=== PATIENT | male | born 1970 | race Caucasian/White ===

== ENCOUNTER 2018-12-17 11:41 | Emergency (ER) | payer MEDICAID ==
[~2018-12-17] VITALS: Ht 185.4 cm; Wt 94.8 kg
[~2018-12-17 11:41] MED LIST: CLIN300C5 PO; FLOR250 PO; LISI10TA11 PO; METF500T2 PO
[2018-12-17 11:52] VITALS: BP 139/88
--- NOTE | 2018-12-17 11:53 | NUR ---
PATIENT AMBULATED TO BED 8.
[2018-12-17] MEDS ORDERED: NACL 0.9% 1,000 ML IV ONE ×2 (12:15→14:15)
--- NOTE | 2018-12-17 12:35 | NUR ---
48/M presents to ED with complaints of elevated blood sugar for the past 2 weeks. Pt also c/o headaches with blurry vision. Pt states his PCP sent him over for further evaluation. Pt c/o 7/10 headache to frontal head. Pt awake and alert appropriate to age, conversing appropriately. Pt placed into gown, belongings bag provided and set chair side. Pt placed on ekg monitor, pulse oximetry and blood pressure monitoring. site monitor shows sinus tachycardia.
[2018-12-17] MEDS ORDERED: INSU100S22 SC (12:40)
[2018-12-17] MEDS ORDERED: GABA300C PO (12:40)
--- NOTE | 2018-12-17 12:45 | NUR ---
DR. NASH AT BEDSIDE EVALUATING PATIENT.
[2018-12-17 12:46] LABS: BASOPHILS % (AUTO) 0.3 % (0.0-2.0); EOSINOPHILS # (AUTO) 0.1 K/uL (0-0.4); EOSINOPHILS % (AUTO) 1.4 % (0.0-4.0); HEMATOCRIT 51.9 % (36-52); HEMOGLOBIN 17.4 g/dL (12.0-18.0); LYMPHOCYTES # (AUTO) 1.4 K/uL (2.0-11.5); LYMPHOCYTES % (AUTO) 16.8 % (20.5-51.1); MEAN CORPUSCULAR HEMOGLOBIN 30 pg (27-31); MEAN CORPUSCULAR HGB CONC 34 g/dL (33-37); MEAN CORPUSCULAR VOLUME 90.1 fL (80-94); MONOCYTES # (AUTO) 0.7 K/uL (0.8-1.0); MONOCYTES % (AUTO) 8.6 % (1.7-9.3); NEUTROPHILS % (AUTO) 72.9 % (42.2-75.2); PLATELET COUNT (AUTO) 235 K/uL (140-450); RED BLOOD CELL COUNT(AUTO) 5.77 MIL/uL (4.20-6.10); RED CELL DISTRIBUTION WIDTH 12.9 % (11.6-13.7); WHITE BLOOD COUNT (AUTO) 8.2 K/uL (4.8-10.8)
[2018-12-17 12:58] LABS: ANION GAP 14.7 (8-16); CARBON DIOXIDE 26.3 mmol/L (21-32); CREATININE 0.7 mg/dL (0.7-1.3)
[2018-12-17 13:04] LABS: ALBUMIN 3.5 g/dL (3.4-5.0); TOTAL BILIRUBIN 0.5 mg/dL (0.0-1.0)
--- NOTE | 2018-12-17 13:06 | NUR ---
PT REPOSITIONED FOR COMFORT, LIGHT DIMMED. WILL CONTINUE TO MONITOR.
[2018-12-17] MEDS ORDERED: FAMOTIDINE 20 MG/2 ML VIAL IVP ONE (13:15)
[2018-12-17] MEDS ORDERED: KETOROLAC 15 MG/ML VIAL IVP ONE (13:15)
[2018-12-17 13:31] LABS: APPEARANCE,URINE CLEAR (CLEAR); BILIRUBIN,URINE NEGATIVE (NEGATIVE); BLOOD, URINE NEGATIVE (NEGATIVE); COLOR,URINE YELLOW (YELLOW); LEUKOCYTE ESTERASE ,URINE NEGATIVE (NEGATIVE); NITRITE, URINE NEGATIVE (NEGATIVE); PH,URINE 5.5 (5.0-9.0); UGLUCOSE 3+ (NEGATIVE)
--- NOTE | 2018-12-17 13:33 | NUR ---
BLOOD SUGAR 300. ER MD NASH MADE AWARE.
[2018-12-17 13:45] LABS: RBC,URINE NONE SEEN /HPF (0-5); WBC,URINE NONE SEEN /HPF (0-5)
[2018-12-17] MEDS ORDERED: INSULIN REGULAR, HUMAN 100 UNIT/ML VIAL SUBQ ONE (14:15)
--- NOTE | 2018-12-17 15:23 | NUR ---
Patient discharged with v/s stable. Written and verbal after care instructions given and explained. Patient alert, oriented and verbalized understanding of instructions. Ambulatory with steady gait. All questions addressed prior to discharge. ID band removed. Patient advised to follow up with PMD. Rx of ACETAMINOPHEN AND PEPCID given. Patient educated on indication of medication including possible reaction and side effects. Opportunity to ask questions provided and answered.
[2018-12-17 15:24] VITALS: BP 128/92
== END 2018-12-17 15:23 | disposition home or self-care (01) ==
LOC: MED 11:41
DX: S30.0XXA Contusion of lower back and pelvis, initial encounter (principal); E11.65 Type 2 diabetes mellitus with hyperglycemia; K29.70 Gastritis, unspecified, without bleeding; K21.9 Gastro-esophageal reflux disease without esophagitis; I10 Essential (primary) hypertension; Z79.4 Long term (current) use of insulin; Z79.899 Other long term (current) drug therapy; W22.8XXA Striking against or struck by other objects, initial encounter; Y93.89 Activity, other specified; Y92.89 Other specified places as the place of occurrence of the external cause; Y99.8 Other external cause status
CPT/HCPCS: 36415; 80053; 81001; 82948; 83690; 84484; 85025; 93005; 96361; 96372; 96374; 96375; 99284; J1815; J1885; J3490; J7030

== ENCOUNTER 2019-02-12 21:14 | Emergency (ER) | payer MEDICAID ==
[~2019-02-12] VITALS: Ht 185.4 cm; Wt 96.6 kg
[~2019-02-12 21:14] MED LIST changes: -CLIN300C5 PO; -FLOR250 PO; +GABA300C PO; +INSU100S22 SC; -METF500T2 PO
[2019-02-12 21:28] VITALS: BP 144/94
--- NOTE | 2019-02-12 21:37 | NUR ---
PT AMBULATED TO LOBBY TO A/W BED.
--- NOTE | 2019-02-12 22:50 | NUR ---
PT ambulated to bed 02.
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
--- NOTE | 2019-02-12 23:34 | NUR ---
PATIENT ALERT AND AWAKE, BREATHING EVEN AND UNLABORED
--- NOTE | 2019-02-12 23:45 | NUR ---
WILL ADMIN ORDERED MED WHEN PT BACK FROM XRAY
[2019-02-12] MEDS: LORazepam 1 MG TAB PO ONE (23:56)
--- NOTE | 2019-02-13 00:15 | NUR ---
RECEIVED REPORT FROM SUDARSHAN MCCAIN, BACK FROM BREAK
--- NOTE | 2019-02-13 00:27 | NUR ---
PATIENT RESTING WITH EYES CLOSED, BREATHING EVEN AND UNLABORED
[2019-02-13 00:41] VITALS: BP 135/98
--- NOTE | 2019-02-13 00:41 | NUR ---
Patient discharged with v/s stable. Written and verbal after care instructions ABOUT ANXIETY AND PANIC ATTACKS, BACK PAIN given and explained. Patient alert, oriented and verbalized understanding of instructions. Ambulatory with steady gait. All questions addressed prior to discharge. ID band removed. Patient advised to follow up with PMD. Rx of ATIVAN given. Patient educated on indication of medication including possible reaction and side effects. Opportunity to ask questions provided and answered.
== END 2019-02-13 00:41 | disposition home or self-care (01) ==
LOC: MED 21:14
DX: F41.0 Panic disorder [episodic paroxysmal anxiety] (principal); M54.9 Dorsalgia, unspecified; E11.9 Type 2 diabetes mellitus without complications; K21.9 Gastro-esophageal reflux disease without esophagitis; I10 Essential (primary) hypertension; Z79.899 Other long term (current) drug therapy; Z79.4 Long term (current) use of insulin; Z98.890 Other specified postprocedural states
CPT/HCPCS: 72100; 99284

== ENCOUNTER 2019-09-13 11:35 | Emergency (ER) | payer MEDICAID ==
[~2019-09-13] VITALS: Ht 177.8 cm; Wt 95.3 kg
[2019-09-13 12:06] LABS: BASOPHILS % (AUTO) 0.5 % (0.0-2.0); EOSINOPHILS # (AUTO) 0.2 K/uL (0-0.4); EOSINOPHILS % (AUTO) 2.7 % (0.0-4.0); HEMATOCRIT 50.3 % (36-52); HEMOGLOBIN 16.9 g/dL (12.0-18.0); LYMPHOCYTES # (AUTO) 1.7 K/uL (2.0-11.5); LYMPHOCYTES % (AUTO) 26.8 % (20.5-51.1); MEAN CORPUSCULAR HEMOGLOBIN 30 pg (27-31); MEAN CORPUSCULAR HGB CONC 34 g/dL (33-37); MEAN CORPUSCULAR VOLUME 90.4 fL (80-94); MONOCYTES # (AUTO) 0.6 K/uL (0.8-1.0); MONOCYTES % (AUTO) 9.7 % (1.7-9.3); NEUTROPHILS # (AUTO) 3.9 K/uL (1.8-7.7); NEUTROPHILS % (AUTO) 60.3 % (42.2-75.2); PLATELET COUNT (AUTO) 222 K/uL (140-450); RED BLOOD CELL COUNT(AUTO) 5.57 MIL/uL (4.20-6.10); RED CELL DISTRIBUTION WIDTH 13.1 % (11.6-13.7); WHITE BLOOD COUNT (AUTO) 6.4 K/uL (4.8-10.8)
[2019-09-13 12:09] VITALS: BP 125/90
[2019-09-13] MEDS: NALOXONE 0.4 MG/ML VIAL IVP ONE (12:09)
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
[2019-09-13 12:24] LABS: ALBUMIN 3.8 g/dL (3.4-5.0); ANION GAP 16.6 (8-16); CARBON DIOXIDE 26.1 mmol/L (21-32); CREATININE 1.1 mg/dL (0.6-1.3); POTASSIUM 3.7 mmol/L (3.5-5.1); TOTAL BILIRUBIN 0.7 mg/dL (0.0-1.0)
--- NOTE | 2019-09-13 12:28 | NUR ---
CRITICAL LABS : BLOOD GLUCOSE: 416 CREAT 1.1
[2019-09-13] MEDS: NACL 0.9% 1,000 ML IV ONE ×2 (12:33→14:33)
[2019-09-13] MEDS: INSULIN REGULAR, HUMAN 100 UNIT/ML VIAL SUBQ ONE (12:34)
--- NOTE | 2019-09-13 13:54 | NUR ---
PT IS AWAKE AND ALERT, FULLY RESPONIVE VERBALLY. DENIES ANY PAIN OR DISCOMFORT AT THIS TIME. RESP EVEN AND UNLABORED. VSS.
[2019-09-13 16:13] VITALS: BP 132/89
--- NOTE | 2019-09-13 16:14 | NUR ---
Patient discharged with v/s stable. Written and verbal after care instructions given and explained. Patient alert, oriented and verbalized understanding of instructions. Ambulatory with steady gait. All questions addressed prior to discharge. ID band removed. Patient advised to follow up with PMD. Rx of NARCAN given. Patient educated on indication of medication including possible reaction and side effects. Opportunity to ask questions provided and answered.
== END 2019-09-13 16:14 | disposition home or self-care (01) ==
LOC: MED 11:35
DX: T40.601A Poisoning by unspecified narcotics, accidental (unintentional), initial encounter (principal); R41.82 Altered mental status, unspecified; E11.65 Type 2 diabetes mellitus with hyperglycemia; F17.200 Nicotine dependence, unspecified, uncomplicated; F11.90 Opioid use, unspecified, uncomplicated; I10 Essential (primary) hypertension; K21.9 Gastro-esophageal reflux disease without esophagitis; Z79.899 Other long term (current) drug therapy
CPT/HCPCS: 36415; 80053; 85025; 96372; 96374; 99284; J1815; J2310; J7030

== ENCOUNTER 2020-01-21 19:11 | Emergency (ER) | payer MEDICAID ==
--- NOTE | 2020-01-21 21:00 | NUR ---
PATIENT CALLED TO BE TRIAGE NO RESPONSE PATIENT LEFT WITHOUT BEING SEEN BY DR. GARCIA. NO FURTHER CARE PROVIDED FOR PATIENT.
--- NOTE | 2020-01-21 21:05 | NUR ---
CALLED FOR THE SECOND TIME NO RESPONSE.
--- NOTE | 2020-01-21 21:10 | NUR ---
CALLED FOR THE THIRD TIME NO RESPONSE
== END 2020-01-21 21:00 | disposition left against medical advice (07) ==
LOC: MED 19:11
DX: Z53.21 Procedure and treatment not carried out due to patient leaving prior to being seen by health care provider (principal)

== ENCOUNTER 2020-03-05 01:20 | Emergency (ER) | payer MEDICAID ==
[~2020-03-05] VITALS: Ht 185.4 cm; Wt 95.7 kg
[2020-03-05 01:23] VITALS: BP 131/100
--- NOTE | 2020-03-05 01:23 | NUR ---
TO BED # 05 AMBULATORY
--- NOTE | 2020-03-05 01:34 | NUR ---
Dr. Barker examining patient.
[2020-03-05] MEDS ORDERED: NACL 0.9% 1,000 ML IV ONE (01:40)
[2020-03-05] MEDS ORDERED: LIDOCAINE/EPI 1% 1:100000 20 ML VIAL INJ ONE (01:40)
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
--- NOTE | 2020-03-05 01:45 | NUR ---
LAB AT BEDSIDE COLLECTING BLOOD SPECIMEN
[2020-03-05 01:56] LABS: BASOPHILS # (AUTO) 0.1 K/uL (0.00-0.22); BASOPHILS % (AUTO) 0.9 % (0.0-2.0); EOSINOPHILS # (AUTO) 0.2 K/uL (0-0.4); EOSINOPHILS % (AUTO) 2.3 % (0.0-4.0); HEMATOCRIT 48.2 % (36-52); HEMOGLOBIN 16.3 g/dL (12.0-18.0); LYMPHOCYTES # (AUTO) 2.3 K/uL (2.0-11.5); LYMPHOCYTES % (AUTO) 31.4 % (20.5-51.1); MEAN CORPUSCULAR HEMOGLOBIN 30 pg (27-31); MEAN CORPUSCULAR HGB CONC 34 g/dL (33-37); MONOCYTES # (AUTO) 0.6 K/uL (0.8-1.0); MONOCYTES % (AUTO) 8.7 % (1.7-9.3); NEUTROPHILS # (AUTO) 4.1 K/uL (1.8-7.7); NEUTROPHILS % (AUTO) 56.7 % (42.2-75.2); PLATELET COUNT (AUTO) 245 K/uL (140-450); RED BLOOD CELL COUNT(AUTO) 5.42 MIL/uL (4.20-6.10); RED CELL DISTRIBUTION WIDTH 12.6 % (11.6-13.7); WHITE BLOOD COUNT (AUTO) 7.2 K/uL (4.8-10.8)
[2020-03-05 02:08] LABS: CREATININE 0.9 mg/dL (0.6-1.3)
--- NOTE | 2020-03-05 02:10 | NUR ---
DR LAURENT AT BEDSIDE PERFORMING PROCEDURE
--- NOTE | 2020-03-05 02:18 | NUR ---
PROVIDED PT WITH A CUP OF WATER AND A URINAL TO PROVIDE URINE SPECIMEN PER ERMD ORDERS
--- NOTE | 2020-03-05 02:25 | NUR ---
PT PROVIDED URINE SPECIMEN----WALKED OVER TO LAB
[2020-03-05 02:33] LABS: APPEARANCE,URINE CLEAR (CLEAR); BILIRUBIN,URINE NEGATIVE (NEGATIVE); BLOOD, URINE NEGATIVE (NEGATIVE); COLOR,URINE YELLOW (YELLOW); LEUKOCYTE ESTERASE ,URINE NEGATIVE (NEGATIVE); NITRITE, URINE NEGATIVE (NEGATIVE); UGLUCOSE 3+ (NEGATIVE)
[2020-03-05] MEDS ORDERED: INSULIN REGULAR, HUMAN 100 UNIT/ML VIAL SUBQ ONE (02:35)
--- NOTE | 2020-03-05 02:45 | NUR ---
PT IS SITTING IN LOW FOWLERS POSITION. 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 BED IS LOCKED AND IN LOWEST POSITION. SIDE RAILSX1. NO ACUTE DISTRESS NOTED. ALL ORDERS CARRIED OUT AND NO NEW ORDERS AT THIS TIME.
--- NOTE | 2020-03-05 03:09 | NUR ---
JANY LAURENT AT BEDSIDE FOR RE-EVALUATION
--- NOTE | 2020-03-05 03:18 | NUR ---
PER JANY LAURENT REQUEST TO RECHECK BLOOD SUGAR
--- NOTE | 2020-03-05 03:21 | NUR ---
ACCUCHECK OF 253-ERMD MEHRAN MADE AWARE AND STATED IT IS OKAY TO DISCHARGE PATIENT
[2020-03-05 03:39] VITALS: BP 134/86
--- NOTE | 2020-03-05 03:39 | NUR ---
Patient discharged with v/s stable. Written and verbal after care instructions given and explained. Patient alert, oriented and verbalized understanding of instructions. Ambulatory with steady gait. All questions addressed prior to discharge. ID band removed. Patient advised to follow up with PMD. Rx of humalog, bactrim, accucheck blood glucose meter kit, accusure insulin syringe given. Patient educated on indication of medication including possible reaction and side effects. Opportunity to ask questions provided and answered.
== END 2020-03-05 03:39 | disposition home or self-care (01) ==
LOC: MED 01:20
DX: E11.65 Type 2 diabetes mellitus with hyperglycemia (principal); L02.211 Cutaneous abscess of abdominal wall; I10 Essential (primary) hypertension; K21.9 Gastro-esophageal reflux disease without esophagitis
CPT/HCPCS: 10060; 36415; 80048; 81003; 82009; 85025; 96360; 96372; 99284; J1815; J2001

== ENCOUNTER 2020-03-29 09:58 | Emergency (ER) | payer MEDICAID ==
[~2020-03-29] VITALS: Ht 185.4 cm; Wt 95.3 kg
[~2020-03-29 09:58] MED LIST changes: +LISI-486 PO; -LISI10TA11 PO
[2020-03-29 10:06] VITALS: BP 116/97
--- NOTE | 2020-03-29 10:20 | NUR ---
AMBULATED TO BED 11
--- NOTE | 2020-03-29 10:43 | NUR ---
DR NASH AT BEDSIDE FOR EVALUATION
--- NOTE | 2020-03-29 11:00 | NUR ---
PT LEFT FACILITY WITHOUT DISCHARGE INSTRUCTIONS.
[2020-03-29 11:16] VITALS: BP 116/97
== END 2020-03-29 11:00 | disposition home or self-care (01) ==
LOC: MED 09:58
DX: L98.9 Disorder of the skin and subcutaneous tissue, unspecified (principal); E11.9 Type 2 diabetes mellitus without complications; K21.9 Gastro-esophageal reflux disease without esophagitis; I10 Essential (primary) hypertension; F17.210 Nicotine dependence, cigarettes, uncomplicated; Z79.899 Other long term (current) drug therapy
CPT/HCPCS: 99281

== ENCOUNTER 2020-04-11 18:04 | Emergency (ER) | payer MEDICAID ==
[~2020-04-11] VITALS: Ht 185.4 cm; Wt 95.3 kg
[2020-04-11 18:12] VITALS: BP 151/105
--- NOTE | 2020-04-11 18:20 | NUR ---
Pt taken to ER bed 3.
--- NOTE | 2020-04-11 18:25 | NUR ---
50 Y/O MALE CAME TO CHECK HIS BLOOD SUGAR. PT STATES HE RAN OUT OF STRIPS TO CHECK GLUCOSE AT HOME. DENIES N/V, DENIES WEAKNESS/FATIGUE, DENIES SOB. PT STATES HE HAS APPT WITH PCP ON 04/13/20. AT TRIAGE ACCUE CHECK 366. PMH: DM, HTN, HLD RX:LISINOPRIL 40MG DAILY, AND HUMALOG 20UNITS DAILY NKA
[2020-04-11] MEDS ORDERED: NACL 0.9% 1,000 ML IV ONE (18:55)
--- NOTE | 2020-04-11 19:01 | NUR ---
UA collected and given to collaborating supervising physician.
--- NOTE | 2020-04-11 19:01 | NUR ---
Rt at pt bedside for VBG.
--- NOTE | 2020-04-11 19:01 | NUR ---
Lab at pt bedside.
--- NOTE | 2020-04-11 19:02 | NUR ---
Dr. Montoya at pt bedside for further evaluation.
[2020-04-11 19:13] LABS: APPEARANCE,URINE CLEAR (CLEAR); BILIRUBIN,URINE NEGATIVE (NEGATIVE); BLOOD, URINE NEGATIVE (NEGATIVE); COLOR,URINE YELLOW (YELLOW); LEUKOCYTE ESTERASE ,URINE NEGATIVE (NEGATIVE); NITRITE, URINE NEGATIVE (NEGATIVE); PH,URINE 5.5 (5.0-9.0); UGLUCOSE 3+ (NEGATIVE)
[2020-04-11 19:23] LABS: ANION GAP 14.2 (8-16); CARBON DIOXIDE 25.7 mmol/L (21-32); CREATININE 0.8 mg/dL (0.6-1.3); POTASSIUM 3.9 mmol/L (3.5-5.1)
--- NOTE | 2020-04-11 19:27 | NUR ---
Report given to ADÁN Selby, transfer of care at this time.
[2020-04-11 19:29] LABS: RBC,URINE NONE SEEN /HPF (0-5); WBC,URINE 0-5 /HPF (0-5)
[2020-04-11] MEDS ORDERED: INSULIN LISPRO 100 UNITS/ML VIAL SUBQ SCH (19:50)
[2020-04-11 19:54] LABS: BASOPHILS % (AUTO) 0.5 % (0.0-2.0); EOSINOPHILS # (AUTO) 0.1 K/uL (0-0.4); EOSINOPHILS % (AUTO) 1.1 % (0.0-4.0); HEMATOCRIT 50.8 % (36-52); HEMOGLOBIN 17.2 g/dL (12.0-18.0); LYMPHOCYTES # (AUTO) 1.7 K/uL (2.0-11.5); LYMPHOCYTES % (AUTO) 21.3 % (20.5-51.1); MEAN CORPUSCULAR HEMOGLOBIN 30 pg (27-31); MEAN CORPUSCULAR HGB CONC 34 g/dL (33-37); MEAN CORPUSCULAR VOLUME 88.3 fL (80-94); MONOCYTES # (AUTO) 0.5 K/uL (0.8-1.0); MONOCYTES % (AUTO) 6.8 % (1.7-9.3); NEUTROPHILS # (AUTO) 5.5 K/uL (1.8-7.7); NEUTROPHILS % (AUTO) 70.3 % (42.2-75.2); PLATELET COUNT (AUTO) 325 K/uL (140-450); RED BLOOD CELL COUNT(AUTO) 5.76 MIL/uL (4.20-6.10); RED CELL DISTRIBUTION WIDTH 12.5 % (11.6-13.7); WHITE BLOOD COUNT (AUTO) 7.9 K/uL (4.8-10.8)
--- NOTE | 2020-04-11 20:02 | NUR ---
pt endorsement received from Nany MCCAIN. pt laying in bed in semi fowlers position. appears comfortable and in no distress. a/o x 4, gcs 15. able to move all extremities. VSS. pt is a 50 year old male coming from home for blood sugar recheck. stated has run out of accu check strips and unable to monitor blood sugar.
[2020-04-11] MEDS ORDERED: INSULIN LISPRO 100 UNITS/ML VIAL SUBQ ONE (20:05)
[2020-04-11] MEDS ORDERED: HUM SUBQ ×2 (20:06→20:08)
--- NOTE | 2020-04-11 20:27 | NUR ---
rechecked blood sugar and result 294. s/w Dr. Montoya regarding ordered 40units humalog, states still okay to give same amount as ordered.
[2020-04-11 20:29] VITALS: BP 137/91
--- NOTE | 2020-04-11 20:36 | NUR ---
removed 20g IV to left AC. bleeding controlled with sterile gauze and reinforced with tape. pt tolerated well.
--- NOTE | 2020-04-11 20:42 | NUR ---
Patient discharged with v/s stable. Written and verbal after care instructions given and explained. Patient alert, oriented and verbalized understanding of instructions. Ambulatory with steady gait. All questions addressed prior to discharge. ID band removed. Patient advised to follow up with PMD. Rx of humalog given. Patient educated on indication of medication including possible reaction and side effects. Opportunity to ask questions provided and answered.
== END 2020-04-11 20:42 | disposition home or self-care (01) ==
LOC: MED 18:04
DX: E11.65 Type 2 diabetes mellitus with hyperglycemia (principal); K21.9 Gastro-esophageal reflux disease without esophagitis; I10 Essential (primary) hypertension; Z91.14 Patient's other noncompliance with medication regimen; Z79.899 Other long term (current) drug therapy; Z79.4 Long term (current) use of insulin
CPT/HCPCS: 36415; 80048; 81001; 85025; 96360; 96372; 99283; J1815

== ENCOUNTER 2020-06-08 03:00 | Emergency (ER) | payer MEDICAID ==
[~2020-06-08] VITALS: Ht 185.4 cm; Wt 81.6 kg
[~2020-06-08 03:00] MED LIST changes: +HUM SUBQ
[2020-06-08 03:08] VITALS: BP 150/97
--- NOTE | 2020-06-08 03:08 | NUR ---
TO BED AMBULATORY
--- NOTE | 2020-06-08 03:15 | NUR ---
50/M BIB SELF WITH COMPLAINT OF BODY ACHES, SOB, HEADACHE, COUGH, GENERALIZED WEAKNESS SINCE YESTERDAY. PT DENIES ANY KNOWN EXPOSURE TO COVID. PT ALSO DENIES ANY N/V/D. NO S/SX OF DISTRESS AT THIS TIME. PT HOOKED TO MONITORS, VSS, CURRENT O2 SAT 97%. SAFETY MEASURES IN PLACE. WILL CONTINUE TO MONITOR. PMH: DM, HTN NKA
--- NOTE | 2020-06-08 03:20 | NUR ---
DR HOOD AT BEDSIDE EXAMINING PATIENT
[2020-06-08] MEDS: IBUPROFEN 800 MG TAB PO ONE (03:34)
[2020-06-08] MEDS: ACETAMINOPHEN EXTRA STRENGTH 500 MG TAB PO ONE (03:35)
--- NOTE | 2020-06-08 03:50 | NUR ---
BLOOD SUGAR 396. ERMD MADE AWARE. NO NEW ORDERS MADE. WILL CONTINUE TO MONITOR.
[2020-06-08] MEDS: NACL 0.9% 1,000 ML IV ONE (03:58)
--- NOTE | 2020-06-08 04:00 | NUR ---
FLU AND COVID SWAB SENT TO LAB
[2020-06-08] MEDS ORDERED: ALBU0.0912 IH (04:44)
[2020-06-08] MEDS ORDERED: AZIT250T11 PO (04:44)
[2020-06-08 05:02] VITALS: BP 132/80
--- NOTE | 2020-06-08 05:02 | NUR ---
Patient discharged with v/s stable. Written and verbal after care instructions given and explained. Patient alert, oriented and verbalized understanding of instructions. Ambulatory with steady gait. All questions addressed prior to discharge. ID band removed. Patient advised to follow up with PMD. Rx of ALBUTEROL, AZITHROMYCIN given. Patient educated on indication of medication including possible reaction and side effects. Opportunity to ask questions provided and answered.
== END 2020-06-08 05:02 | disposition home or self-care (01) ==
LOC: MED 03:00
DX: U07.1 COVID-19 (principal); I10 Essential (primary) hypertension; E11.65 Type 2 diabetes mellitus with hyperglycemia; Z79.4 Long term (current) use of insulin; Z79.899 Other long term (current) drug therapy
CPT/HCPCS: 82948; 87426; 87804; 96360; 99283; J7030

== ENCOUNTER 2021-02-26 08:22 | Emergency (ER) | payer MEDICAID ==
[~2021-02-26] VITALS: Ht 185.4 cm; Wt 88.2 kg
[~2021-02-26 08:22] MED LIST changes: +ALBU0.0912 IH; +AZIT250T11 PO
[2021-02-26 08:41] VITALS: BP 134/89
--- NOTE | 2021-02-26 08:52 | NUR ---
C/O HI BLOOD SUGAR, 8/10 TOOTH PAIN X 1 WEEK. BLOOD SUGAR 373 AT THIS TIME. PMH: DM, HTN
[2021-02-26] MEDS ORDERED: HYDROcodone/APAP 5/325 MG 1 TAB TAB PO ONE (08:55)
[2021-02-26] MEDS ORDERED: INSULIN REGULAR, HUMAN 100 UNIT/ML VIAL IVP ONE ×2 (09:10→12:10)
[2021-02-26] MEDS ORDERED: NACL 0.9% 1,000 ML IV ONE ×2 (10:15→11:45)
[2021-02-26] MEDS ORDERED: INSULIN NPH HUM/REG INSULIN HM 100 UNIT/ML 10 ML VIAL SUBQ ONE (11:45)
[2021-02-26 11:46] LABS: BASOPHILS % (AUTO) 0.4 % (0.0-2.0); EOSINOPHILS # (AUTO) 0.1 K/uL (0-0.4); EOSINOPHILS % (AUTO) 1.6 % (0.0-4.0); HEMATOCRIT 51.7 % (36-52); LYMPHOCYTES # (AUTO) 1.3 K/uL (2.0-11.5); LYMPHOCYTES % (AUTO) 16.6 % (20.5-51.1); MEAN CORPUSCULAR HEMOGLOBIN 31 pg (27-31); MEAN CORPUSCULAR HGB CONC 35 g/dL (33-37); MEAN CORPUSCULAR VOLUME 89.5 fL (80-94); MONOCYTES # (AUTO) 0.7 K/uL (0.8-1.0); MONOCYTES % (AUTO) 9.2 % (1.7-9.3); NEUTROPHILS # (AUTO) 5.7 K/uL (1.8-7.7); NEUTROPHILS % (AUTO) 72.2 % (42.2-75.2); PLATELET COUNT (AUTO) 265 K/uL (140-450); RED BLOOD CELL COUNT(AUTO) 5.77 MIL/uL (4.20-6.10); RED CELL DISTRIBUTION WIDTH 13.1 % (11.6-13.7); WHITE BLOOD COUNT (AUTO) 7.9 K/uL (4.8-10.8)
--- NOTE | 2021-02-26 12:07 | NUR ---
verbal received to withhold insulin 70-30 and give insulin Regular 5 units IVP. Orders placed.
[2021-02-26 13:02] VITALS: BP 117/80
--- NOTE | 2021-02-26 13:02 | NUR ---
Patient discharged with v/s stable. Written and verbal after care instructions given and explained. Patient verbalized understanding. Ambulatory with steady gait. All questions addressed prior to discharge. Advised to follow up with PMD.
[2021-02-26 13:07] LABS: ALBUMIN 3.7 g/dL (3.4-5.0); ANION GAP 14.6 (8-16); CARBON DIOXIDE 26.6 mmol/L (21-32); CREATININE 0.8 mg/dL (0.6-1.3); POTASSIUM 4.2 mmol/L (3.5-5.1); TOTAL BILIRUBIN 0.5 mg/dL (0.0-1.0)
--- NOTE | 2021-03-03 15:55 | NUR ---
LATE ENTRY- IV NORMAL SALINE DISCONTINUED AT 1302.
== END 2021-02-26 13:02 | disposition home or self-care (01) ==
LOC: MED 08:22
DX: K04.7 Periapical abscess without sinus (principal); E11.65 Type 2 diabetes mellitus with hyperglycemia; I10 Essential (primary) hypertension; Z79.899 Other long term (current) drug therapy; Z79.4 Long term (current) use of insulin
CPT/HCPCS: 36415; 80053; 81002; 82948; 85025; 96361; 96372; 96374; 99284; J1815; J7030; 96375

== ENCOUNTER 2021-06-02 01:43 | Emergency (ER) | payer MEDICAID ==
[~2021-06-02] VITALS: Ht 185.4 cm; Wt 87.1 kg
[2021-06-02 01:50] VITALS: BP 114/75
--- NOTE | 2021-06-02 01:50 | NUR ---
PT AMBULATED TO BED #4
--- NOTE | 2021-06-02 02:38 | NUR ---
51 y/o M BIB SELF WITH C/O IRRITATION AND SWELLING OF THE GENITALS. PT STATES THIS HAPPENS EVERY ONCE IN AWHILE DUE TO HIS DIABETES. PT STATES THE SWELLING USUALLY GOES AWAY AFTER A FEW DAYS BUT THIS TIME ITS GETTING WORSE. PT STATES 7/10 PAIN. PT DENIES DISCHARGE AND PAINFUL URINATION. PT DENIES STDS. PT DENIES N/F/D/V/COUGH/SOB/ CHEST PAIN. AAOX4 WITH EVEN AND STEADY GAIT; PMH: HTN, DM RX: humalog, lisinopril allergies: none
--- NOTE | 2021-06-02 02:43 | NUR ---
pt lights turned down off. hob elevated. pt sleeping
[2021-06-02] MEDS ORDERED: CLOB-114 TP (03:03)
[2021-06-02 03:30] VITALS: BP 114/75
--- NOTE | 2021-06-02 03:30 | NUR ---
Patient discharged with v/s stable. Written and verbal after care instructions given and explained. Patient alert, oriented and verbalized understanding of instructions. Ambulatory with steady gait. All questions addressed prior to discharge. ID band removed. Patient advised to follow up with PMD. Rx of clobestasol emollient given.Opportunity to ask questions provided and answered.
--- NOTE | 2021-06-02 03:35 | NUR ---
The patient's care was reviewed and supervised by Temitope Porras RN.
== END 2021-06-02 03:30 | disposition home or self-care (01) ==
LOC: MED 01:43
DX: N47.1 Phimosis (principal); E11.9 Type 2 diabetes mellitus without complications; I10 Essential (primary) hypertension; Z79.4 Long term (current) use of insulin; Z79.899 Other long term (current) drug therapy
CPT/HCPCS: 99283

== ENCOUNTER 2021-06-13 22:47 | Emergency (ER) | payer MEDICAID ==
[~2021-06-13] VITALS: Ht 185.4 cm; Wt 88.5 kg
[~2021-06-13 22:47] MED LIST changes: +CLOB-114 TP
[2021-06-13 22:52] VITALS: BP 121/92
--- NOTE | 2021-06-13 23:00 | NUR ---
Dr. Thompson at triage to exam patient.
--- NOTE | 2021-06-13 23:06 | NUR ---
Patient ambulated to bed 11.
[2021-06-13] MEDS ORDERED: CLOT14CR2 TP (23:11)
[2021-06-13] MEDS ORDERED: LANC1COM6 MC (23:11)
[2021-06-13] MEDS ORDERED: MUPI2CRE22 TP (23:11)
--- NOTE | 2021-06-13 23:21 | NUR ---
JANY HOOD ALREADY SAW PT, CLARIFIED WITH HIM THAT NO NURSING INTERVENTIONS NEEDED. STATED PT JUST WANTS A FEW MEDS FOR HOME.
[2021-06-13 23:24] VITALS: BP 121/92
--- NOTE | 2021-06-13 23:24 | NUR ---
Patient discharged with v/s stable. Written and verbal after care instructions given and explained. Patient alert, oriented and verbalized understanding of instructions. Ambulatory with steady gait. All questions addressed prior to discharge. ID band removed. Patient advised to follow up with PMD. Rx of CLOTRIMAZOLE, LANCET/BLOOD GLUCOSE, MUPIROCIN given. Patient educated on indication of medication including possible reaction and side effects. Opportunity to ask questions provided and answered.
== END 2021-06-13 23:24 | disposition home or self-care (01) ==
LOC: MED 22:47
DX: E11.65 Type 2 diabetes mellitus with hyperglycemia (principal); I10 Essential (primary) hypertension; Z79.899 Other long term (current) drug therapy; Z79.4 Long term (current) use of insulin
CPT/HCPCS: 82948; 99283

== ENCOUNTER 2021-07-13 06:55 | Emergency (ER) | payer MEDICAID ==
[~2021-07-13] VITALS: Ht 185.4 cm; Wt 88.5 kg
[~2021-07-13 06:55] MED LIST changes: +CLOT14CR2 TP; +LANC1COM6 MC; +MUPI2CRE22 TP
[2021-07-13 07:10] VITALS: BP 110/83
--- NOTE | 2021-07-13 07:10 | NUR ---
TO BED AMBULATORY
--- NOTE | 2021-07-13 07:15 | NUR ---
SEEN AND EXAMINED BY JANY
[2021-07-13] MEDS ORDERED: KETOROLAC 60 MG/2 ML VIAL IM ONE (07:20)
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
--- NOTE | 2021-07-13 07:42 | NUR ---
PT TAKEN TO XR VIA WC
[2021-07-13] MEDS ORDERED: NAPR-54 PO (08:40)
[2021-07-13] MEDS ORDERED: CYCL-711 PO (08:40)
[2021-07-13 08:46] VITALS: BP 116/78
--- NOTE | 2021-07-13 08:47 | NUR ---
Patient discharged with v/s stable. Written and verbal after care instructions given and explained. Patient alert, oriented and verbalized understanding of instructions. Ambulatory with steady gait. All questions addressed prior to discharge. ID band removed. Patient advised to follow up with PMD. Rx of FLEXERIL, NAPROSYN given. Patient educated on indication of medication including possible reaction and side effects. Opportunity to ask questions provided and answered.
== END 2021-07-13 08:47 | disposition home or self-care (01) ==
LOC: MED 06:55
DX: S13.4XXA Sprain of ligaments of cervical spine, initial encounter (principal); S33.5XXA Sprain of ligaments of lumbar spine, initial encounter; E11.9 Type 2 diabetes mellitus without complications; I10 Essential (primary) hypertension; Z79.1 Long term (current) use of non-steroidal anti-inflammatories (NSAID); Z79.899 Other long term (current) drug therapy; Z79.2 Long term (current) use of antibiotics; Z79.4 Long term (current) use of insulin; V49.59XA Passenger injured in collision with other motor vehicles in traffic accident, initial encounter; Y93.89 Activity, other specified; Y92.410 Unspecified street and highway as the place of occurrence of the external cause; Y99.8 Other external cause status
CPT/HCPCS: 72040; 72100; 96372; 99284; J1885

== ENCOUNTER 2021-11-10 06:43 | Emergency (ER) | payer MEDICAID, OTHER ==
[~2021-11-10] VITALS: Ht 185.4 cm; Wt 82.6 kg
[~2021-11-10 06:43] MED LIST changes: +CYCL-711 PO; +NAPR-54 PO
[2021-11-10 07:14] VITALS: BP 124/82
--- NOTE | 2021-11-10 07:23 | NUR ---
PT AMB TO BED 10
[2021-11-10] MEDS ORDERED: NACL 0.9% 1,000 ML IV ONE ×2 (07:30→08:55)
--- NOTE | 2021-11-10 08:09 | NUR ---
RAD AT BEDSIDE
[2021-11-10 08:15] LABS: BASOPHILS % (AUTO) 0.6 % (0.0-2.0); EOSINOPHILS # (AUTO) 0.1 K/uL (0-0.4); EOSINOPHILS % (AUTO) 1.4 % (0.0-4.0); HEMATOCRIT 48.6 % (36-52); HEMOGLOBIN 16.7 g/dL (12.0-18.0); LYMPHOCYTES # (AUTO) 2.2 K/uL (2.0-11.5); LYMPHOCYTES % (AUTO) 27.5 % (20.5-51.1); MEAN CORPUSCULAR HEMOGLOBIN 31 pg (27-31); MEAN CORPUSCULAR HGB CONC 34 g/dL (33-37); MEAN CORPUSCULAR VOLUME 89.7 fL (80-94); MONOCYTES # (AUTO) 0.8 K/uL (0.8-1.0); MONOCYTES % (AUTO) 9.9 % (1.7-9.3); NEUTROPHILS # (AUTO) 4.7 K/uL (1.8-7.7); NEUTROPHILS % (AUTO) 60.6 % (42.2-75.2); PLATELET COUNT (AUTO) 241 K/uL (140-450); RED BLOOD CELL COUNT(AUTO) 5.42 MIL/uL (4.20-6.10); RED CELL DISTRIBUTION WIDTH 12.8 % (11.6-13.7); WHITE BLOOD COUNT (AUTO) 7.8 K/uL (4.8-10.8)
[2021-11-10 08:24] LABS: PROTHROMBIN TIME 9.7 secs (10.8-13.4)
[2021-11-10] MEDS ORDERED: GABAPENTIN 300 MG CAP PO ONE (08:40)
[2021-11-10] MEDS ORDERED: KETOROLAC 15 MG/ML VIAL IVP ONE (08:40)
[2021-11-10 08:59] LABS: ACETONE, SERUM SMALL (NEGATIVE)
[2021-11-10 09:06] LABS: APPEARANCE,URINE CLEAR (CLEAR); BILIRUBIN,URINE NEGATIVE (NEGATIVE); BLOOD, URINE NEGATIVE (NEGATIVE); COLOR,URINE YELLOW (YELLOW); LEUKOCYTE ESTERASE ,URINE NEGATIVE (NEGATIVE); NITRITE, URINE NEGATIVE (NEGATIVE); UGLUCOSE 3+ (NEGATIVE)
[2021-11-10 09:06] LABS: ALBUMIN 3.5 g/dL (3.4-5.0); ANION GAP 12.3 (8-16); CREATININE 0.9 mg/dL (0.6-1.3); POTASSIUM 4.3 mmol/L (3.5-5.1); TOTAL BILIRUBIN 0.7 mg/dL (0.0-1.0)
[2021-11-10] MEDS ORDERED: INSULIN REGULAR, HUMAN 100 UNIT/ML VIAL SUBQ ONE ×2 (09:20→13:35)
[2021-11-10] MEDS ORDERED: HUM SUBQ (14:01)
[2021-11-10] MEDS ORDERED: GABA300C PO (14:01)
--- NOTE | 2021-11-10 14:01 | NUR ---
PT DENIES N/V/D; SKIN IS INTACT, PINK/WARM/DRY; AAOX4, PERRL, WITH EVEN AND STEADY GAIT; LUNGS CLEAR BL, BREATHING UNLABORED; HR EVEN AND REGULAR, BL PERIPHERAL PULSES PRESENT; BS ACTIVE X4, NO TENDERNESS TO PALPATION, NO Y PALPATED, RESONANT TO PERCUSSION; PT DENIES ANY FEVER, CP, SOB, OR COUGH AT THIS TIME; PT STATES 0/10 PAIN AT THIS TIME; VSS; PATIENT POSITIONED FOR COMFORT; HOB ELEVATED; BEDRAILS UP X2; BED DOWN.
[2021-11-10 14:15] VITALS: BP 126/84
--- NOTE | 2021-11-10 14:21 | NUR ---
Patient discharged with v/s stable. Written and verbal after care instructions given and explained. Patient alert, oriented and verbalized understanding of instructions. Ambulatory with steady gait. All questions addressed prior to discharge. ID band removed. Patient advised to follow up with PMD. Rx of gabapentin, given. Patient educated on indication of medication including possible reaction and side effects. Opportunity to ask questions provided and answered.
--- NOTE | 2021-11-16 14:49 | NUR ---
LATE ENTRY- IV NS DISCONTINUED AT 1421.
== END 2021-11-10 13:50 | disposition home or self-care (01) ==
LOC: MED 06:43
DX: E11.65 Type 2 diabetes mellitus with hyperglycemia (principal); I10 Essential (primary) hypertension; G43.909 Migraine, unspecified, not intractable, without status migrainosus; F17.210 Nicotine dependence, cigarettes, uncomplicated; Z79.4 Long term (current) use of insulin; Z79.899 Other long term (current) drug therapy
CPT/HCPCS: 36415; 71045; 80053; 81003; 82009; 82948; 83605; 83880; 84484; 85025; 85610; 85730; 87040; 87086; 93005; 96361; 96372; 96374; 99285; J1815; J1885; J7030; Q0092

== ENCOUNTER 2022-10-10 06:50 | Emergency (ER) | payer MEDICAID ==
[~2022-10-10] VITALS: Ht 185.4 cm; Wt 79.4 kg
[~2022-10-10 06:50] MED LIST changes: -CLOB-114 TP; +CLOB15CR11 TP
[2022-10-10 06:59] VITALS: BP 145/98; PULSE 101; RESP 16; TEMP 97.8; O2SAT 100
[2022-10-10 08:10] LABS: APPEARANCE,URINE CLEAR (CLEAR); BILIRUBIN,URINE NEGATIVE (NEGATIVE); BLOOD, URINE NEGATIVE (NEGATIVE); COLOR,URINE YELLOW (YELLOW); LEUKOCYTE ESTERASE ,URINE NEGATIVE (NEGATIVE); NITRITE, URINE NEGATIVE (NEGATIVE); PROTEIN,URINE NEGATIVE (NEGATIVE); UGLUCOSE 3+ (NEGATIVE)
[2022-10-10] MEDS ORDERED: INSU100S22 SUBQ (09:18)
[2022-10-10 09:28] VITALS: BP 128/82; PULSE 88; RESP 16; TEMP 98; O2SAT 99
== END 2022-10-10 09:28 | disposition home or self-care (01) ==
LOC: MED 06:50
DX: E11.65 Type 2 diabetes mellitus with hyperglycemia (principal); R30.0 Dysuria; I10 Essential (primary) hypertension; Z79.899 Other long term (current) drug therapy; Z79.4 Long term (current) use of insulin
CPT/HCPCS: 81003; 82948; 99283

== ENCOUNTER 2022-11-24 04:00 | Emergency (ER) | payer MEDICAID ==
[~2022-11-24] VITALS: Ht 185.4 cm; Wt 81.6 kg
[~2022-11-24 04:00] MED LIST changes: +INSU100S22 SUBQ
[2022-11-24 04:32] VITALS: BP 115/80; PULSE 105; RESP 19; TEMP 98.2; O2SAT 97
== END 2022-11-24 07:30 | disposition left against medical advice (07) ==
LOC: MED 04:00
DX: M79.661 Pain in right lower leg (principal); M79.662 Pain in left lower leg; Z53.21 Procedure and treatment not carried out due to patient leaving prior to being seen by health care provider
CPT/HCPCS: 99281

== ENCOUNTER 2023-03-09 10:23 | Emergency (ER) | payer MEDICAID ==
[~2023-03-09] VITALS: Ht 185.4 cm; Wt 81.6 kg
[2023-03-09 10:29] VITALS: BP 131/84; PULSE 116; RESP 19; TEMP 97.3; O2SAT 98
[2023-03-09 11:11] VITALS: BP 139/90; PULSE 107; RESP 19; TEMP 97.3; O2SAT 99
== END 2023-03-09 11:19 | disposition home or self-care (01) ==
LOC: MED 10:23
DX: L03.012 Cellulitis of left finger (principal); Z79.899 Other long term (current) drug therapy
CPT/HCPCS: 99282

== ENCOUNTER 2023-03-22 07:54 | Emergency (ER) | payer MEDICAID ==
[~2023-03-22] VITALS: Ht 185.4 cm; Wt 79.4 kg
[2023-03-22 07:56] VITALS: BP 135/92; PULSE 111; RESP 20; TEMP 98.9; O2SAT 100
[2023-03-22 08:48] LABS: ANION GAP 11.4 (8-16); CALCIUM 8.8 mg/dL (8.5-10.1); CARBON DIOXIDE 30.5 mmol/L (21-32); CREATININE 0.8 mg/dL (0.6-1.3); POTASSIUM 3.9 mmol/L (3.5-5.1)
[2023-03-22 09:01] LABS: BASOPHILS % (AUTO) 0.7 % (0.0-2.0); EOSINOPHILS # (AUTO) 0.1 K/uL (0-0.4); EOSINOPHILS % (AUTO) 1.4 % (0.0-4.0); HEMATOCRIT 52.2 % (36-52); LYMPHOCYTES # (AUTO) 1.7 K/uL (2.0-11.5); LYMPHOCYTES % (AUTO) 24.8 % (20.5-51.1); MEAN CORPUSCULAR HEMOGLOBIN 31 pg (27-31); MEAN CORPUSCULAR HGB CONC 35 g/dL (33-37); MEAN CORPUSCULAR VOLUME 89.3 fL (80-94); MONOCYTES # (AUTO) 0.5 K/uL (0.8-1.0); NEUTROPHILS # (AUTO) 4.4 K/uL (1.8-7.7); NEUTROPHILS % (AUTO) 65.1 % (42.2-75.2); PLATELET COUNT (AUTO) 288 K/uL (140-450); RED BLOOD CELL COUNT(AUTO) 5.84 MIL/uL (4.20-6.10); RED CELL DISTRIBUTION WIDTH 12.9 % (11.6-13.7); WHITE BLOOD COUNT (AUTO) 6.8 K/uL (4.8-10.8)
[2023-03-22 09:10] LABS: ALBUMIN 3.5 g/dL (3.4-5.0); BILIRUBIN,DIRECT 0.2 mg/dL (0.0-0.3); THYROID STIMULATING HORMONE 1.11 uIU/mL (0.34-3.74); TOTAL BILIRUBIN 0.5 mg/dL (0.0-1.0); TOTAL PROTEIN, SERUM 8.1 g/dL (6.4-8.2)
[2023-03-22] MEDS: NACL 0.9% 1,000 ML IV ONE (09:21)
[2023-03-22] MEDS: INSULIN REGULAR, HUMAN 100 UNIT/ML VIAL IVP ONE (09:28)
[2023-03-22 09:30] VITALS: O2SAT 98
[2023-03-22 10:43] VITALS: BP 125/92; PULSE 110; RESP 17; TEMP 96.3; O2SAT 100
== END 2023-03-22 10:43 | disposition home or self-care (01) ==
LOC: MED 07:54
DX: E11.65 Type 2 diabetes mellitus with hyperglycemia (principal); I10 Essential (primary) hypertension; Z79.4 Long term (current) use of insulin; Z79.899 Other long term (current) drug therapy
CPT/HCPCS: 36415; 80048; 80076; 84443; 85025; 93005; 96361; 96374; 99284; J1815; J7030

== ENCOUNTER 2023-06-09 06:44 | Emergency (ER) | payer MEDICAID ==
[~2023-06-09] VITALS: Ht 157.5 cm; Wt 65.8 kg
[~2023-06-09 06:44] MED LIST changes: +NAPR-337 PO; -NAPR-54 PO
[2023-06-09 07:25] VITALS: BP 132/93; PULSE 111; RESP 20; TEMP 98.5; O2SAT 98
[2023-06-09] MEDS: KETOROLAC 30 MG/ML VIAL IM ONE (07:33)
[2023-06-09] MEDS: DICYCLOMINE 20 MG/2 ML VIAL IM ONE (07:35)
[2023-06-09] MEDS ORDERED: BEN10 PO (08:02)
[2023-06-09 08:08] VITALS: BP 146/101; PULSE 111; RESP 22; TEMP 98.5; O2SAT 97
== END 2023-06-09 08:08 | disposition home or self-care (01) ==
LOC: MED 06:44
DX: B34.9 Viral infection, unspecified (principal); R19.7 Diarrhea, unspecified; E11.65 Type 2 diabetes mellitus with hyperglycemia; I10 Essential (primary) hypertension; Z79.4 Long term (current) use of insulin; Z79.899 Other long term (current) drug therapy
CPT/HCPCS: 82948; 96372; 99284; J0500; J1885

== ENCOUNTER 2023-06-20 05:20 | Emergency (ER) | payer MEDICAID ==
[~2023-06-20] VITALS: Ht 182.9 cm; Wt 78.5 kg
[~2023-06-20 05:20] MED LIST changes: +BEN10 PO
[2023-06-20 05:47] VITALS: BP 141/93; PULSE 115; RESP 20; TEMP 97.4; O2SAT 96
[2023-06-20 06:44] LABS: FLU A ANTIGEN negative (NEGATIVE); FLU B ANTIGEN NEGATIVE (NEGATIVE)
[2023-06-20] MEDS: KETOROLAC 60 MG/2 ML VIAL IM ONE (06:44)
[2023-06-20] MEDS ORDERED: PRED20TA5 PO (06:55)
[2023-06-20] MEDS ORDERED: GABA300C PO (06:55)
[2023-06-20] MEDS ORDERED: IBUP-2213 PO (06:55)
[2023-06-20 07:14] VITALS: BP 141/93; PULSE 115; RESP 20; TEMP 97.4; O2SAT 96
== END 2023-06-20 07:13 | disposition home or self-care (01) ==
LOC: MED 05:20
DX: R22.43 Localized swelling, mass and lump, lower limb, bilateral (principal); R05.9 Cough, unspecified; Z20.822 Contact with and (suspected) exposure to COVID-19; E11.9 Type 2 diabetes mellitus without complications; I10 Essential (primary) hypertension; Z79.4 Long term (current) use of insulin; Z79.1 Long term (current) use of non-steroidal anti-inflammatories (NSAID); Z79.2 Long term (current) use of antibiotics; Z79.899 Other long term (current) drug therapy
CPT/HCPCS: 87426; 87804; 96372; 99283; J1885

== ENCOUNTER 2023-07-07 01:00 | Emergency (ER) | payer MEDICAID ==
[~2023-07-07] VITALS: Ht 185.4 cm; Wt 78.0 kg
[~2023-07-07 01:00] MED LIST changes: +IBUP-2213 PO; -LISI-486 PO; +LISI-951 PO; +PRED20TA5 PO
[2023-07-07 01:30] VITALS: BP 134/79; PULSE 112; RESP 20; TEMP 97.9; O2SAT 99
[2023-07-07] MEDS ORDERED: oxyCODONE 5 MG TAB PO STA (04:48)
[2023-07-07] MEDS: ACETAMINOPHEN EXTRA STRENGTH 500 MG TAB PO ONE (05:06)
[2023-07-07] MEDS: KETOROLAC 30 MG/ML VIAL IM ONE (05:09)
[2023-07-07 05:36] VITALS: BP 134/79; PULSE 112; RESP 20; TEMP 97.9; O2SAT 99
== END 2023-07-07 05:36 | disposition home or self-care (01) ==
LOC: MED 01:00
DX: E11.40 Type 2 diabetes mellitus with diabetic neuropathy, unspecified (principal); I10 Essential (primary) hypertension; Z79.84 Long term (current) use of oral hypoglycemic drugs; Z79.4 Long term (current) use of insulin; Z79.1 Long term (current) use of non-steroidal anti-inflammatories (NSAID); Z79.2 Long term (current) use of antibiotics; Z79.899 Other long term (current) drug therapy
CPT/HCPCS: 90471; 90715; 96372; 99284; J1885